=== PATIENT | male | born 1995 | race Hispanic/Latino ===

== ENCOUNTER 2016-11-16 06:29 | Emergency (ER) | payer OTHER ==
[2016-11-16 06:54] LABS: BASO % 0.3 % (0.0-1.0); EOS # 0.2 K/mm3 (0.0-0.50); LARGE UNSTAINED CELL # 0.2 K/mm3 (0.0-0.4); LARGE UNSTAINED CELL % 2.6 % (0.0-4.0); LYMPH # 2.1 K/mm3 (1.5-6.5); LYMPH % 27.9 % (24.0-44.0); MEAN CORPUSCULAR HEMOGLOBIN 28.8 pg (27.0-33.0); MEAN CORPUSCULAR HGB CONC 32.6 g/dl (32.0-36.5); MEAN CORPUSCULAR VOLUME 88.4 fl (80.0-96.0); MONO # 0.4 K/mm3 (0.0-0.8); MONO % 5.6 % (0.0-5.0); NEUTROPHILS # 4.5 K/mm3 (1.8-7.7); NEUTROPHILS % 60.6 % (36.0-66.0); PLATELET COUNT, AUTOMATED 192 k/mm3 (150-450); RED CELL DISTRIBUTION WIDTH 11.4 % (11.5-14.5); WHITE BLOOD COUNT 7.3 K/mm3 (4.0-10.0)
[2016-11-16 07:07] LABS: ANION GAP 8 MEQ/L (8-16); BLOOD UREA NITROGEN 15 MG/DL (7-18); CALCIUM LEVEL 9.1 MG/DL (8.5-10.1); CARBON DIOXIDE LEVEL 27 MEQ/L (21-32); CHLORIDE LEVEL 105 MEQ/L (98-107); CREATININE FOR GFR 0.88 MG/DL (0.70-1.30); GLOMERULAR FILTRATION RATE > 60.0 (>60); GLUCOSE, FASTING 91 MG/DL (70-105); POTASSIUM SERUM 3.9 MEQ/L (3.5-5.1); SODIUM LEVEL 140 MEQ/L (136-145)
--- NOTE | 2016-11-16 09:04 | EDDOCDS ---
Nurse's Notes [facility] Name: Tray Og Age: 21 yrs Sex: Male : 1995 Arrival Date: 11/16/2016 Time: 06:29 Bed 17 Private MD: Diagnosis: Infectious gastroenteritis and colitis, unspecified-viral Presentation: 11/16 06:37 Presenting complaint: Patient states: vomiting and diarrhea since last night, denies sls1 abdominal pain or diarrhea, does report cough. Adult Sepsis Screening: Accepted Exclusions- The patient does not have new or worsening altered mentation. Patient's respiratory rate is less than 22. Systolic blood pressure is greater than 100. Patient has a qSOFA score of 0- Negative Sepsis Screen. Suicide/Homicide risk assessment- the patient denies having any suicidal and/or homicidal ideations and does not present with any other emotional, behavioral or mental health complaints. 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 Transition of care: patient was not received from another setting of care. 06:37 Acuity: IRINA Level 3 sls1 06:37 Method Of Arrival: Walkin/Carried/Asstd sls1 Triage Assessment: 06:37 General: Appears in no apparent distress, Behavior is appropriate for age, cooperative. sls1 Pain: Denies pain. Pt Declines HIV testing. The patient is triaged at the bedside. See Assessment in Nurses Notes section of ED record. Neurological: Level of Consciousness is awake, alert. Respiratory: No deficits noted. GI: Reports diarrhea, nausea, vomiting. Historical: - Allergies: no known allergies; - Home Meds: 1. none - PMHx: none; - PSHx: none; - Social history: Smoking status: Patient uses tobacco products, light tobacco smoker. No barriers to communication noted, The patient speaks fluent Telugu, Speaks appropriately for age. - Family history: Not pertinent. - : The pt / caregiver states he / she is not on anticoagulants. Home medication list is obtained from the patient. - Exposure Risk Screening:: None identified. Screenin:45 Screening information is obtained from the patient. Fall risk: No risks identified. kas2 Assistance ADL's: requires no assistance with activities of daily living. Abuse/DV Screen: The patient / caregiver reports he/she is: not in a situation that causes fear, pain or injury. Nutritional screening: No deficits noted. Advance Directives: Currently, there is no health care proxy. There is no active DNR order. There is no living will. There is no Power of Animal Skinner. home support is adequate. Assessment: 06:44 General: Appears in no apparent distress, uncomfortable, well nourished, well groomed, kas2 Behavior is appropriate for age, cooperative. Pain: Location: abdomen Pain currently is 6 out of 10 on a pain scale. Neurological: Level of Consciousness is awake, alert, Oriented to person, place, time. Cardiovascular: Capillary refill < 3 seconds Heart tones S1 S2 present Rhythm is regular. Respiratory: Airway is patent Respiratory effort is even, unlabored, Respiratory pattern is regular, symmetrical, Breath sounds are clear bilaterally. GI: Abdomen is flat, non- distended Bowel sounds present X 4 quads. Abd is tender to palpation X 4 quads. Derm: Skin is intact, Skin is dry, Skin is pale, Skin temperature is warm. 07:10 General: Appears in no apparent distress, Behavior is cooperative, Resting on mcp stretcher. IV patent and infusing well. Neurological: No deficits noted. Respiratory: Airway is patent Respiratory effort is even, unlabored. Derm: Skin is pink, warm & dry. 08:13 Reassessment: Orthostatic BPs done - when asked if he was dizzy while flat patient kcs responded "not much", no dizziness sitting up but got dizzy when standing. Flat affect. Keeps eyes closed during entire time I was in there and talking with him. [place] applied per request. Siderail up and call light on rail.. 09:01 General: Appears in no apparent distress, Behavior is cooperative. Pain: Denies pain. [facility] Neurological: No deficits noted. Respiratory: Airway is patent Respiratory effort is even, unlabored. Derm: Skin is pink, warm & dry. Vital Signs: 06:37 Resp 18; Weight 77.11 kg; Height 5 ft. 9 in. (175.26 cm); Pain 0/10; sls1 06:39 Temp 99.2; sls1 06:39 BP 129 / 81; Pulse 78; Pulse Ox 99% on R/A; sls1 08:15 BP 126 / 69 Supine; Pulse 71; Resp 18; Pulse Ox 99% on R/A; kcs 08:15 BP 125 / 77 Sitting; Pulse 92; Resp 18; Pulse Ox 99% on R/A; kcs 08:15 BP 127 / 84 Standing; Pulse 91; Resp 18; Pulse Ox 99% on R/A; kcs 09:00 BP 127 / 63; Pulse 67; Resp 18; Temp 97.8(O); Pulse Ox 99% on R/A; Pain 0/10; mcp 06:37 Body Mass Index 25.10 (77.11 kg, 175.26 cm) [facility] Vitals: 06:37 Log In Time: November 16, 2016 at 06:29. [facility] ED Course: 06:32 Patient visited by Eliseo Felix Reg. pm4 06:32 Patient moved to Waiting pm4 06:35 Rebecca Pride RN is Primary Nurse. sls1 06:35 Patient moved to 17 [facility] 06:37 Triage Initiated [facility] 06:45 Inserted saline lock: 20 gauge in right antecubital area and blood collected. The kas2 patient tolerated the procedure well. No procedures done that require assistance. 06:46 Patient visited by Rebecca Pride RN. kas2 06:48 Alfonzo Boggs DO is Attending Physician. cs11 06:48 Patient visited by Alfonzo Boggs DO. cs11 06:50 CBC with Diff Sent. kas2 06:50 MED Profile Sent. kas2 06:52 Patient visited by Rebecca Pride RN. kas2 06:57 Attending Physician role handed off by Alfonzo Boggs DO pc 06:57 Nikos Murray MD is Attending Physician. pc 07:08 [facility] Payment Agreement was scanned into [employer] and attached to record. hs2 07:12 Patient name changed from Tray\\S\\\\S\\Lenka\\S\\ to Tray\\S\\ \\S\\Lenka. EDMS 07:24 Primary Nurse role handed off by Rebecca Pride RN [facility] 07:57 Patient visited by Nikos Murray MD. pc 08:48 [facility] pc 09:01 Discontinued lock intact, bleeding controlled, pressure dressing applied, No mcp redness/swelling at site. 09:02 The patient / caregiver is instructed regarding the plan of care and ED course. Patient mcp has correct armband on for positive identification. Placed in gown. Bed in low position. Call light in reach. Administered Medications: 06:51 Drug: NS 0.9% 1000 ml [sodium chloride 0.9 % intravenous solution] Route: IV; Rate: kas2 bolus; Site: right antecubital; 08:07 Follow up: IV Status: Completed infusion; IV Intake: 1000ml kcs Intake: 08:07 IV: 1000.00ml; Total: 1000.00ml. kcs Order Results: Lab Order: CBC with Diff; SPEC'M 11/16/16 06:42 Test: WHITE BLOOD COUNT; Value: 7.3; Range: 4.0-10.0; Units: K/mm3; Status: F Test: RED BLOOD COUNT; Value: 5.00; Range: 4.30-6.10; Units: M/mm3; Status: F Test: HEMOGLOBIN; Value: 14.4; Range: 14.0-18.0; Units: g/dl; Status: F Test: HEMATOCRIT; Value: 44.2; Range: 42.0-52.0; Units: %; Status: F Test: MEAN CORPUSCULAR VOLUME; Value: 88.4; Range: 80.0-96.0; Units: fl; Status: F Test: MEAN CORPUSCULAR HEMOGLOBIN; Value: 28.8; Range: 27.0-33.0; Units: pg; Status: F Test: MEAN CORPUSCULAR HGB CONC; Value: 32.6; Range: 32.0-36.5; Units: g/dl; Status: F Test: RED CELL DISTRIBUTION WIDTH; Value: 11.4; Range: 11.5-14.5; Abnormal: Below low normal; Units: %; Status: F Test: PLATELET COUNT, AUTOMATED; Value: 192; Range: 150-450; Units: k/mm3; Status: F Test: NEUTROPHILS %; Value: 60.6; Range: 36.0-66.0; Units: %; Status: F Test: LYMPH %; Value: 27.9; Range: 24.0-44.0; Units: %; Status: F Test: MONO %; Value: 5.6; Range: 0.0-5.0; Abnormal: Above high normal; Units: %; Status: F Test: EOS %; Value: 3.0; Range: 0.0-3.0; Units: %; Status: F Test: BASO %; Value: 0.3; Range: 0.0-1.0; Units: %; Status: F Test: LARGE UNSTAINED CELL %; Value: 2.6; Range: 0.0-4.0; Units: %; Status: F Test: NEUTROPHILS #; Value: 4.5; Range: 1.8-7.7; Units: K/mm3; Status: F Test: LYMPH #; Value: 2.1; Range: 1.5-6.5; Units: K/mm3; Status: F Test: MONO #; Value: 0.4; Range: 0.0-0.8; Units: K/mm3; Status: F Test: EOS #; Value: 0.2; Range: 0.0-0.50; Units: K/mm3; Status: F Test: BASO #; Value: 0.0; Range: 0.0-0.2; Units: K/mm3; Status: F Test: LARGE UNSTAINED CELL #; Value: 0.2; Range: 0.0-0.4; Units: K/mm3; Status: F Lab Order: MED Profile; [facility] 11/16/16 06:14 Test: GLUCOSE, FASTING; Value: 91; Range: 70-105; Units: MG/DL; Status: F Test: BLOOD UREA NITROGEN; Value: 15; Range: 7-18; Units: MG/DL; Status: F Test: CREATININE FOR GFR; Value: 0.88; Range: 0.70-1.30; Units: MG/DL; Status: F Test: GLOMERULAR FILTRATION RATE; Value: > 60.0; Range: >60; Status: F Test: SODIUM LEVEL; Value: 140; Range: 136-145; Units: MEQ/L; Status: F Test: POTASSIUM SERUM; Value: 3.9; Range: 3.5-5.1; Units: MEQ/L; Status: F Test: CHLORIDE LEVEL; Value: 105; Range: 98-107; Units: MEQ/L; Status: F Test: CARBON DIOXIDE LEVEL; Value: 27; Range: 21-32; Units: MEQ/L; Status: F Test: ANION GAP; Value: 8; Range: 8-16; Units: MEQ/L; Status: F Test: CALCIUM LEVEL; Value: 9.1; Range: 8.5-10.1; Units: MG/DL; Status: F Test Note: ; Units are mL/min/1.73 m2 Chronic Kidney Disease Staging per NKF: Stage I & II GFR >=60 Normal to Mildly Decreased Stage III GFR 30-59 Moderately Decreased Stage IV GFR 15-29 Severely Decreased Stage V GFR <15 Very Little GFR Left ESRD GFR <15 on ASSISTED LIVING MANAGER Outcome: 08:48 Discharge ordered by Provider. 09:02 Discharge Assessment: patient administered narcotics - no. The following High Risk [facility] Discharge criteria are identified: None. Discharged to home ambulatory. Condition: stable. Discharge instructions given to patient, Instructed on discharge instructions, follow up and referral plans. medication usage, Demonstrated understanding of instructions, medications, Pt was receptive of discharge instructions/ teaching. Prescriptions given X 1. No special radiology studies were completed. Property sent home with patient. 09:02 Patient left the ED. [facility] Signatures: Dispatcher [employer] EDMS Nikos Murray MD MD pc Sleeman, Kacey, Vianey Adler RN, RN RN mcp Strong, Shannon, RN RN sls1 Alfonzo Boggs, DO cs11 Celeste Duque, Reg Reg hs2 Rebecca Pride RN RN kas2 Eliseo Felix, Reg Reg pm4 MTDD
--- NOTE | 2016-11-16 09:04 | EDDOCDS ---
Physician Documentation [facility] Name: Tray Og Age: 21 yrs Sex: Male : 1995 Arrival Date: 11/16/2016 Time: 06:29 Bed 17 Private MD: Disposition: 11/16 08:48 Critical Care: Critical care not applicable. Disposition: 11/16/16 08:48 Discharged to Home/Self Care. Impression: Infectious gastroenteritis and colitis, unspecified - viral. - Condition is Stable. - Discharge Instructions: Viral Gastroenteritis. - Prescriptions for ZOFRAN ODT 4 mg - dissolve 1 tablet by ORAL route 4 times per day As needed do not chew, do not swallow whole; 10 tablet. - Medication Reconciliation, Local Pharmacy Hours form. - Follow up: [facility] [place]; When: Call to arrange an appointment; Reason: Recheck today's complaints. - Problem is new. - Symptoms have improved. Historical: - Allergies: no known allergies; - Home Meds: 1. none - PMHx: none; - PSHx: none; - Social history: Smoking status: Patient uses tobacco products, light tobacco smoker. No barriers to communication noted, The patient speaks fluent Lao, Speaks appropriately for age. - Family history: Not pertinent. - : The pt / caregiver states he / she is not on anticoagulants. Home medication list is obtained from the patient. - Exposure Risk Screening:: None identified. Vital Signs: 06:37 Resp 18; Weight 77.11 kg / 170 lbs; Height 5 ft. 9 in. (175.26 cm); Pain 0/10; sls1 06:39 Temp 99.2; sls1 06:39 BP 129 / 81; Pulse 78; Pulse Ox 99% on R/A; sls1 08:15 BP 126 / 69 Supine; Pulse 71; Resp 18; Pulse Ox 99% on R/A; kcs 08:15 BP 125 / 77 Sitting; Pulse 92; Resp 18; Pulse Ox 99% on R/A; kcs 08:15 BP 127 / 84 Standing; Pulse 91; Resp 18; Pulse Ox 99% on R/A; kcs 09:00 BP 127 / 63; Pulse 67; Resp 18; Temp 97.8(O); Pulse Ox 99% on R/A; Pain 0/10; mcp 06:37 Body Mass Index 25.10 (77.11 kg, 175.26 cm) sls1 MDM: 06:47 IV Saline Lock ordered. cs11 06:47 NS 0.9% 1000 ml IV at bolus once ordered. cs11 06:48 CBC with Diff Ordered. EDMS 06:48 MED Profile Ordered. EDMS 07:01 CBC with Diff Reviewed. pc 07:07 Financial registration complete. hs2 07:08 [facility] Payment Agreement was scanned into [employer] and attached to record. hs2 07:11 MED Profile Reviewed. pc 07:11 Orthostatic VS ordered. pc 08:48 Test interpretation: LAB - all labs as ordered have been reviewed, interpreted and pc considered in the overall management of the clinical presentation;. The patient has been re-examined and re-evaluated. The patient's symptoms have markedly improved after treatment. Disposition: The historical points, examination findings, and any diagnostic results supporting the provided diagnosis, were discussed with the patient or legal guardian. The need for outpatient follow up with the provider listed on their discharge instructions was discussed. They were encouraged to return to [facility], or the nearest ED, if symptoms worsen/persist, or for any other questions/concerns. Administered Medications: 06:51 Drug: NS 0.9% 1000 ml [sodium chloride 0.9 % intravenous solution] Route: IV; Rate: kas2 bolus; Site: right antecubital; 08:07 Follow up: IV Status: Completed infusion; IV Intake: 1000ml sarbjit Signatures: Dispatcher [employer] EDOR Nikos Murray MD MD pc Peters, Mary, RN RN mcp Strong, Shannon, RN RN sls1 Alfonzo Boggs DO DO cs11 Celeste Duque, Reg Reg hs2 Serena Hussein RN, Kim RN kas2 The chart was reviewed and I authenticate all verbal orders and agree with the evaluation and treatment provided.Attachments: 07:08 [facility] Payment Agreement hs2 MTDD
--- NOTE | 2016-11-18 10:04 | EDDOCDS ---
Physician Documentation Name: Tray Og Age: 21 yrs Sex: Male : 1995 Arrival Date: 11/16/2016 Time: 06:29 Bed 17 Private MD: Disposition: 11/16 08:48 Critical Care: Critical care not applicable. Disposition: 11/16/16 08:48 Discharged to Home/Self Care. Impression: Infectious gastroenteritis and colitis, unspecified - viral. - Condition is Stable. - Discharge Instructions: Viral Gastroenteritis. - Prescriptions for ZOFRAN ODT 4 mg - dissolve 1 tablet by ORAL route 4 times per day As needed do not chew, do not swallow whole; 10 tablet. - Medication Reconciliation, Local Pharmacy Hours form. - Follow up: [facility] [place]; When: Call to arrange an appointment; Reason: Recheck today's complaints. - Problem is new. - Symptoms have improved. Historical: - Allergies: no known allergies; - Home Meds: 1. none - PMHx: none; - PSHx: none; - Social history: Smoking status: Patient uses tobacco products, light tobacco smoker. No barriers to communication noted, The patient speaks fluent Yakut, Speaks appropriately for age. - Family history: Not pertinent. - : The pt / caregiver states he / she is not on anticoagulants. Home medication list is obtained from the patient. - Exposure Risk Screening:: None identified. Vital Signs: 06:37 Resp 18; Weight 77.11 kg / 170 lbs; Height 5 ft. 9 in. (175.26 cm); Pain 0/10; sls1 06:39 Temp 99.2; sls1 06:39 BP 129 / 81; Pulse 78; Pulse Ox 99% on R/A; sls1 08:15 BP 126 / 69 Supine; Pulse 71; Resp 18; Pulse Ox 99% on R/A; kcs 08:15 BP 125 / 77 Sitting; Pulse 92; Resp 18; Pulse Ox 99% on R/A; kcs 08:15 BP 127 / 84 Standing; Pulse 91; Resp 18; Pulse Ox 99% on R/A; kcs 09:00 BP 127 / 63; Pulse 67; Resp 18; Temp 97.8(O); Pulse Ox 99% on R/A; Pain 0/10; mcp 06:37 Body Mass Index 25.10 (77.11 kg, 175.26 cm) sls1 MDM: 06:47 IV Saline Lock ordered. cs11 06:47 NS 0.9% 1000 ml IV at bolus once ordered. cs11 06:48 CBC with Diff Ordered. EDMS 06:48 MED Profile Ordered. EDMS 07:01 CBC with Diff Reviewed. pc 07:07 Financial registration complete. hs2 07:08 [facility] Payment Agreement was scanned into [employer] and attached to record. hs2 07:11 MED Profile Reviewed. pc 07:11 Orthostatic VS ordered. pc 08:48 Test interpretation: LAB - all labs as ordered have been reviewed, interpreted and pc considered in the overall management of the clinical presentation;. The patient has been re-examined and re-evaluated. The patient's symptoms have markedly improved after treatment. Disposition: The historical points, examination findings, and any diagnostic results supporting the provided diagnosis, were discussed with the patient or legal guardian. The need for outpatient follow up with the provider listed on their discharge instructions was discussed. They were encouraged to return to [facility], or the nearest ED, if symptoms worsen/persist, or for any other questions/concerns. 15:26 T-Sheet-- Draft Copy was scanned into [employer] and attached to record. gb Administered Medications: 06:51 Drug: NS 0.9% 1000 ml [sodium chloride 0.9 % intravenous solution] Route: IV; Rate: kas2 bolus; Site: right antecubital; 08:07 Follow up: IV Status: Completed infusion; IV Intake: 1000ml kcs Signatures: Dispatcher [employer] EDTX Nikos Murray MD MD pc Peters, Mary, RN RN [facility] Rosa Mcclure, Reg Reg gb Edwina Coelho RN RN sls1 Alfonzo Boggs, DO cs11 Celeste Duque, Reg Reg hs2 Serena Hussein RN, Kim RN kas2 The chart was reviewed and I authenticate all verbal orders and agree with the evaluation and treatment provided.Attachments: 07:08 [facility] Payment Agreement hs2 15:26 T-Sheet-- Draft Copy gb Chart Complete MTDD
--- NOTE | 2016-11-18 10:04 | EDDOCDS ---
Physician Documentation [facility] Name: Tray Og Age: 21 yrs Sex: Male : 1995 Arrival Date: 11/16/2016 Time: 06:29 Bed 17 Private MD: Disposition: 11/16 08:48 Critical Care: Critical care not applicable. Disposition: 11/16/16 08:48 Discharged to Home/Self Care. Impression: Infectious gastroenteritis and colitis, unspecified - viral. - Condition is Stable. - Discharge Instructions: Viral Gastroenteritis. - Prescriptions for ZOFRAN ODT 4 mg - dissolve 1 tablet by ORAL route 4 times per day As needed do not chew, do not swallow whole; 10 tablet. - Medication Reconciliation, Local Pharmacy Hours form. - Follow up: [facility] [place]; When: Call to arrange an appointment; Reason: Recheck today's complaints. - Problem is new. - Symptoms have improved. Historical: - Allergies: no known allergies; - Home Meds: 1. none - PMHx: none; - PSHx: none; - Social history: Smoking status: Patient uses tobacco products, light tobacco smoker. No barriers to communication noted, The patient speaks fluent Hungarian, Speaks appropriately for age. - Family history: Not pertinent. - : The pt / caregiver states he / she is not on anticoagulants. Home medication list is obtained from the patient. - Exposure Risk Screening:: None identified. Vital Signs: 06:37 Resp 18; Weight 77.11 kg / 170 lbs; Height 5 ft. 9 in. (175.26 cm); Pain 0/10; sls1 06:39 Temp 99.2; sls1 06:39 BP 129 / 81; Pulse 78; Pulse Ox 99% on R/A; sls1 08:15 BP 126 / 69 Supine; Pulse 71; Resp 18; Pulse Ox 99% on R/A; kcs 08:15 BP 125 / 77 Sitting; Pulse 92; Resp 18; Pulse Ox 99% on R/A; kcs 08:15 BP 127 / 84 Standing; Pulse 91; Resp 18; Pulse Ox 99% on R/A; kcs 09:00 BP 127 / 63; Pulse 67; Resp 18; Temp 97.8(O); Pulse Ox 99% on R/A; Pain 0/10; mcp 06:37 Body Mass Index 25.10 (77.11 kg, 175.26 cm) sls1 MDM: 06:47 IV Saline Lock ordered. cs11 06:47 NS 0.9% 1000 ml IV at bolus once ordered. cs11 06:48 CBC with Diff Ordered. EDMS 06:48 MED Profile Ordered. EDMS 07:01 CBC with Diff Reviewed. pc 07:07 Financial registration complete. hs2 07:08 [facility] Payment Agreement was scanned into [employer] and attached to record. hs2 07:11 MED Profile Reviewed. pc 07:11 Orthostatic VS ordered. pc 08:48 Test interpretation: LAB - all labs as ordered have been reviewed, interpreted and pc considered in the overall management of the clinical presentation;. The patient has been re-examined and re-evaluated. The patient's symptoms have markedly improved after treatment. Disposition: The historical points, examination findings, and any diagnostic results supporting the provided diagnosis, were discussed with the patient or legal guardian. The need for outpatient follow up with the provider listed on their discharge instructions was discussed. They were encouraged to return to [facility], or the nearest ED, if symptoms worsen/persist, or for any other questions/concerns. 15:26 T-Sheet-- Draft Copy was scanned into [employer] and attached to record. gb Administered Medications: 06:51 Drug: NS 0.9% 1000 ml [sodium chloride 0.9 % intravenous solution] Route: IV; Rate: kas2 bolus; Site: right antecubital; 08:07 Follow up: IV Status: Completed infusion; IV Intake: 1000ml kcs Signatures: Dispatcher [employer] EDVT Nikos Murray MD MD pc Peters, Mary, RN RN [facility] Rosa Mcclure, Reg Reg gb Edwina Coelho RN RN sls1 Alfonzo Boggs, DO cs11 Celeste Duque, Reg Reg hs2 Serena Hussein RN, Kim RN kas2 The chart was reviewed and I authenticate all verbal orders and agree with the evaluation and treatment provided.Attachments: 07:08 [facility] Payment Agreement hs2 15:26 T-Sheet-- Draft Copy gb Chart Complete MTDD
--- NOTE | 2016-11-18 10:04 | EDDOCDS ---
Nurse's Notes [facility] Name: Tray Og Age: 21 yrs Sex: Male : 1995 Arrival Date: 11/16/2016 Time: 06:29 Bed 17 Private MD: Diagnosis: Infectious gastroenteritis and colitis, unspecified-viral Presentation: 11/16 06:37 Presenting complaint: Patient states: vomiting and diarrhea since last night, denies sls1 abdominal pain or diarrhea, does report cough. Adult Sepsis Screening: Accepted Exclusions- The patient does not have new or worsening altered mentation. Patient's respiratory rate is less than 22. Systolic blood pressure is greater than 100. Patient has a qSOFA score of 0- Negative Sepsis Screen. Suicide/Homicide risk assessment- the patient denies having any suicidal and/or homicidal ideations and does not present with any other emotional, behavioral or mental health complaints. Status: The patient is an active duty it service technician. Transition of care: patient was not received from another setting of care. 06:37 Acuity: IRINA Level 3 sls1 06:37 Method Of Arrival: Walkin/Carried/Asstd sls1 Triage Assessment: 06:37 General: Appears in no apparent distress, Behavior is appropriate for age, cooperative. sls1 Pain: Denies pain. Pt Declines HIV testing. The patient is triaged at the bedside. See Assessment in Nurses Notes section of ED record. Neurological: Level of Consciousness is awake, alert. Respiratory: No deficits noted. GI: Reports diarrhea, nausea, vomiting. Historical: - Allergies: no known allergies; - Home Meds: 1. none - PMHx: none; - PSHx: none; - Social history: Smoking status: Patient uses tobacco products, light tobacco smoker. No barriers to communication noted, The patient speaks fluent [place], Speaks appropriately for age. - Family history: Not pertinent. - : The pt / caregiver states he / she is not on anticoagulants. Home medication list is obtained from the patient. - Exposure Risk Screening:: None identified. Screenin:45 Screening information is obtained from the patient. Fall risk: No risks identified. kas2 Assistance ADL's: requires no assistance with activities of daily living. Abuse/DV Screen: The patient / caregiver reports he/she is: not in a situation that causes fear, pain or injury. Nutritional screening: No deficits noted. Advance Directives: Currently, there is no health care proxy. There is no active DNR order. There is no living will. There is no Power of [employer] Work[employer]. home support is adequate. Assessment: 06:44 General: Appears in no apparent distress, uncomfortable, well nourished, well groomed, kas2 Behavior is appropriate for age, cooperative. Pain: Location: abdomen Pain currently is 6 out of 10 on a pain scale. Neurological: Level of Consciousness is awake, alert, Oriented to person, place, time. Cardiovascular: Capillary refill < 3 seconds Heart tones S1 S2 present Rhythm is regular. Respiratory: Airway is patent Respiratory effort is even, unlabored, Respiratory pattern is regular, symmetrical, Breath sounds are clear bilaterally. GI: Abdomen is flat, non- distended Bowel sounds present X 4 quads. Abd is tender to palpation X 4 quads. Derm: Skin is intact, Skin is dry, Skin is pale, Skin temperature is warm. 07:10 General: Appears in no apparent distress, Behavior is cooperative, Resting on mcp stretcher. IV patent and infusing well. Neurological: No deficits noted. Respiratory: Airway is patent Respiratory effort is even, unlabored. Derm: Skin is pink, warm & dry. 08:13 Reassessment: Orthostatic BPs done - when asked if he was dizzy while flat patient kcs responded "not much", no dizziness sitting up but got dizzy when standing. Flat affect. Keeps eyes closed during entire time I was in there and talking with him. [place] applied per request. Siderail up and call light on rail.. 09:01 General: Appears in no apparent distress, Behavior is cooperative. Pain: Denies pain. [facility] Neurological: No deficits noted. Respiratory: Airway is patent Respiratory effort is even, unlabored. Derm: Skin is pink, warm & dry. Vital Signs: 06:37 Resp 18; Weight 77.11 kg; Height 5 ft. 9 in. (175.26 cm); Pain 0/10; sls1 06:39 Temp 99.2; sls1 06:39 BP 129 / 81; Pulse 78; Pulse Ox 99% on R/A; sls1 08:15 BP 126 / 69 Supine; Pulse 71; Resp 18; Pulse Ox 99% on R/A; kcs 08:15 BP 125 / 77 Sitting; Pulse 92; Resp 18; Pulse Ox 99% on R/A; kcs 08:15 BP 127 / 84 Standing; Pulse 91; Resp 18; Pulse Ox 99% on R/A; kcs 09:00 BP 127 / 63; Pulse 67; Resp 18; Temp 97.8(O); Pulse Ox 99% on R/A; Pain 0/10; mcp 06:37 Body Mass Index 25.10 (77.11 kg, 175.26 cm) [facility] Vitals: 06:37 Log In Time: November 16, 2016 at 06:29. [facility] ED Course: 06:32 Patient visited by Eliseo Felix Reg. pm4 06:32 Patient moved to Waiting pm4 06:35 Rebecca Pride RN is Primary Nurse. sls1 06:35 Patient moved to 17 [facility] 06:37 Triage Initiated [facility] 06:45 Inserted saline lock: 20 gauge in right antecubital area and blood collected. The kas2 patient tolerated the procedure well. No procedures done that require assistance. 06:46 Patient visited by Rebecca Pride RN. kas2 06:48 Alfonzo Boggs DO is Attending Physician. cs11 06:48 Patient visited by Alfonzo Boggs DO. cs11 06:50 CBC with Diff Sent. kas2 06:50 MED Profile Sent. kas2 06:52 Patient visited by Rebecca Pride RN. kas2 06:57 Attending Physician role handed off by Alfonzo Boggs DO pc 06:57 Nikos Murray MD is Attending Physician. pc 07:08 [facility] Payment Agreement was scanned into [employer] and attached to record. hs2 07:12 Patient name changed from Tray\\S\\\\S\\Lenka\\S\\ to Tray\\S\\ \\S\\Lenka. EDMS 07:24 Primary Nurse role handed off by Rebecca Pride RN [facility] 07:57 Patient visited by Nikos Murray MD. pc 08:48 [facility] pc 09:01 Discontinued lock intact, bleeding controlled, pressure dressing applied, No mcp redness/swelling at site. 09:02 The patient / caregiver is instructed regarding the plan of care and ED course. Patient mcp has correct armband on for positive identification. Placed in gown. Bed in low position. Call light in reach. 15:26 T-Sheet-- Draft Copy was scanned into [employer] and attached to record. gb Administered Medications: 06:51 Drug: NS 0.9% 1000 ml [sodium chloride 0.9 % intravenous solution] Route: IV; Rate: kas2 bolus; Site: right antecubital; 08:07 Follow up: IV Status: Completed infusion; IV Intake: 1000ml kcs Intake: 08:07 IV: 1000.00ml; Total: 1000.00ml. kcs Order Results: Lab Order: CBC with Diff; SPEC'M 11/16/16 06:42 Test: WHITE BLOOD COUNT; Value: 7.3; Range: 4.0-10.0; Units: K/mm3; Status: F Test: RED BLOOD COUNT; Value: 5.00; Range: 4.30-6.10; Units: M/mm3; Status: F Test: HEMOGLOBIN; Value: 14.4; Range: 14.0-18.0; Units: g/dl; Status: F Test: HEMATOCRIT; Value: 44.2; Range: 42.0-52.0; Units: %; Status: F Test: MEAN CORPUSCULAR VOLUME; Value: 88.4; Range: 80.0-96.0; Units: fl; Status: F Test: MEAN CORPUSCULAR HEMOGLOBIN; Value: 28.8; Range: 27.0-33.0; Units: pg; Status: F Test: MEAN CORPUSCULAR HGB CONC; Value: 32.6; Range: 32.0-36.5; Units: g/dl; Status: F Test: RED CELL DISTRIBUTION WIDTH; Value: 11.4; Range: 11.5-14.5; Abnormal: Below low normal; Units: %; Status: F Test: PLATELET COUNT, AUTOMATED; Value: 192; Range: 150-450; Units: k/mm3; Status: F Test: NEUTROPHILS %; Value: 60.6; Range: 36.0-66.0; Units: %; Status: F Test: LYMPH %; Value: 27.9; Range: 24.0-44.0; Units: %; Status: F Test: MONO %; Value: 5.6; Range: 0.0-5.0; Abnormal: Above high normal; Units: %; Status: F Test: EOS %; Value: 3.0; Range: 0.0-3.0; Units: %; Status: F Test: BASO %; Value: 0.3; Range: 0.0-1.0; Units: %; Status: F Test: LARGE UNSTAINED CELL %; Value: 2.6; Range: 0.0-4.0; Units: %; Status: F Test: NEUTROPHILS #; Value: 4.5; Range: 1.8-7.7; Units: K/mm3; Status: F Test: LYMPH #; Value: 2.1; Range: 1.5-6.5; Units: K/mm3; Status: F Test: MONO #; Value: 0.4; Range: 0.0-0.8; Units: K/mm3; Status: F Test: EOS #; Value: 0.2; Range: 0.0-0.50; Units: K/mm3; Status: F Test: BASO #; Value: 0.0; Range: 0.0-0.2; Units: K/mm3; Status: F Test: LARGE UNSTAINED CELL #; Value: 0.2; Range: 0.0-0.4; Units: K/mm3; Status: F Lab Order: MED Profile; SPEC'M 11/16/16 06:14 Test: GLUCOSE, FASTING; Value: 91; Range: 70-105; Units: MG/DL; Status: F Test: BLOOD UREA NITROGEN; Value: 15; Range: 7-18; Units: MG/DL; Status: F Test: CREATININE FOR GFR; Value: 0.88; Range: 0.70-1.30; Units: MG/DL; Status: F Test: GLOMERULAR FILTRATION RATE; Value: > 60.0; Range: >60; Status: F Test: SODIUM LEVEL; Value: 140; Range: 136-145; Units: MEQ/L; Status: F Test: POTASSIUM SERUM; Value: 3.9; Range: 3.5-5.1; Units: MEQ/L; Status: F Test: CHLORIDE LEVEL; Value: 105; Range: 98-107; Units: MEQ/L; Status: F Test: CARBON DIOXIDE LEVEL; Value: 27; Range: 21-32; Units: MEQ/L; Status: F Test: ANION GAP; Value: 8; Range: 8-16; Units: MEQ/L; Status: F Test: CALCIUM LEVEL; Value: 9.1; Range: 8.5-10.1; Units: MG/DL; Status: F Test Note: ; Units are mL/min/1.73 m2 Chronic Kidney Disease Staging per NKF: Stage I & II GFR >=60 Normal to Mildly Decreased Stage III GFR 30-59 Moderately Decreased Stage IV GFR 15-29 Severely Decreased Stage V GFR <15 Very Little GFR Left ESRD GFR <15 on [employer] Outcome: 08:48 Discharge ordered by Provider. 09:02 Discharge Assessment: patient administered narcotics - no. The following High Risk [facility] Discharge criteria are identified: None. Discharged to home ambulatory. Condition: stable. Discharge instructions given to patient, Instructed on discharge instructions, follow up and referral plans. medication usage, Demonstrated understanding of instructions, medications, Pt was receptive of discharge instructions/ teaching. Prescriptions given X 1. No special radiology studies were completed. Property sent home with patient. 09:02 Patient left the ED. [facility] Signatures: Dispatcher [employer] EDMS Nikos Murray MD MD pc Sleeman, Kacey, RN RN Vianey Barry RN RN [facility] Rosa Mcclure, Reg Reg gb Edwina Coelho RN RN sls1 Alfonzo Boggs, DO cs11 Celeste Duque, Reg Reg hs2 Rebecca Pride,RN RN kas2 Eliseo Felix, Reg Reg pm4 Chart Complete MTDD
== END 2016-11-16 09:02 | disposition home or self-care (01) ==
LOC: M ED 06:29
DX: K52.9 Noninfective gastroenteritis and colitis, unspecified (principal); F17.210 Nicotine dependence, cigarettes, uncomplicated